=== PATIENT | male | born 1950 | race Caucasian/White ===

== ENCOUNTER → 2017-05-22 | Outpatient (CLI) | payer MEDICARE ==
[~2017-05-22] MED LIST: HYDROCODON-ACE1 EAC7 PO
--- NOTE | ~2017-05-22 | US5 ---
[facility] A Service of [facility] RADIOLOGY TEXT RESULTS PATIENT: COLTON LINDA LOCATION: [facility] : 54 UNIT #: [id number] AGE: [address]: NORTH ALARCON SEX: M ORDER DR: [id number] [place], [place] [address] [id number] O MR#: [id number] Acc #: [id number] NAME: COLTON LINDA : 1950 SEX: M STUDY DATE/TIME: 05/22/2017 9:06 UNIT: [facility] ROOM: STUDY DESCRIPTION: US Abdominal Complete Attending Physician: North Alarcon Aprn Referring Physician: [place] Alarcon Aprn Ordering Physician: Nader Segundo III, M.D. Primary Care Physician: Brii Pate M.D. MEDICAL IMAGING REPORT This report is preliminary unless electronic signature is present EXAM Abdominal ultrasound INDICATION Hepatitis C. TECHNIQUE Maher-scale, color Doppler and spectral Doppler waveform analysis was performed through the abdomen. FINDINGS Patient does have some atherosclerotic involvement of the abdominal aorta although it does measure within normal size limits. The liver is enlarged measuring up to about 17.3 cm in craniocaudal dimensions, and I think there is some diffuse hepatic steatosis. No focal hepatic lesions are seen. Gallbladder is normal in appearance. No stones or sludge are identified. There is no gallbladder wall thickening or pericholecystic fluid. Both kidneys are normal in appearance with no solid or cystic renal masses identified and no hydronephrosis is seen. Spleen is also within normal limits. There is limited visualization of the pancreas. IMPRESSION 1. Hepatomegaly and diffuse hepatic steatosis. 2. Suspected atherosclerotic involvement of the abdominal aorta although it does measure within normal size limits. Dictated by... Rebeka Moreno M.D. THIS IS AN ELECTRONICALLY VERIFIED REPORT Rebeka Moreno M.D. at 05/22/2017 3:55 PM [facility] A Service of [facility] RADIOLOGY TEXT RESULTS PATIENT: COLTON LINDA LOCATION: [facility] #: [id number] : 54 UNIT #: [id number] AGE: [address]: NORTH ALARCON SEX: M ORDER DR: Jose Alejandro TD: 05/22/2017 14:04 JOB #: [id number] MEDICAL IMAGING REPORT Page 1 of 1 COPY
== END | disposition home or self-care (01) ==
LOC: CGUS 05-17 10:30
DX: B18.2 Chronic viral hepatitis C (principal); K76.0 Fatty (change of) liver, not elsewhere classified; R16.0 Hepatomegaly, not elsewhere classified
CPT/HCPCS: 76700